=== PATIENT | female | born 1990 | race Caucasian/White ===

== ENCOUNTER 2018-01-17 11:43 | Emergency (ER) | payer OTHER, MEDICAID, SELFPAY ==
[2018-01-17] VITALS (8 sets, daily range): BP systolic 99–122; BP diastolic 47–80; PULSE 65–100; RESP 12–23; TEMP 37.1; O2SAT 93–100; BMI 32.8
--- NOTE | 2018-01-17 12:03 | DI.RAD.S_ITS ---
PROCEDURE: XR CHEST 1V INDICATIONS: short of breath and chest pain TECHNIQUE: One view of the chest was acquired. COMPARISON: None. FINDINGS: Surgical changes and devices: None. Lungs and pleura: Lung volumes are low. There is vascular crowding secondary to low lung volumes. No acute airspace opacities. No pleural effusion or pneumothorax. Mediastinum: Mediastinal contours appear normal. Heart size is normal. Bones and chest wall: No suspicious bony lesions. Overlying soft tissues appear unremarkable. IMPRESSION: Low lung volumes and vascular crowding. Dictated by: Oly Curiel M.D. on 01/17/2018 at 12:42 Approved by: Oly Curiel M.D. on 01/17/2018 at 12:42
[2018-01-17 12:13] LABS: Add Manual Diff / Slide Review NO; Basophils Percent Auto 0.6 % (0-2); Eosinophils Percent Auto 2.6 % (2-4); Hematocrit 33.7 % (36-46); Hemoglobin 11.4 g/dL (12.0-16.0); Lymphocytes Percent Auto 24.8 % (25-40); Mean Corpuscular HGB Conc 33.9 % (30-36); Mean Corpuscular Hemoglobin 28.4 PG (26-34); Mean Corpuscular Volume 83.8 fL (80-100); Monocytes Percent Auto 7.1 % (3-14); Neutrophils Absolute Auto 6800 /uL (3000-5900); Neutrophils Percent Auto 64.9 % (50-75); Platelet Count 206 X10^3/uL (150-400); Red Blood Cell Count 4.02 X10^6/uL (4.0-5.2); Red Cell Distribution Width 14.8 % (11.6-14.8); White Blood Cell Count 10.4 X10^3/uL (4.5-11.0)
[2018-01-17 12:23] LABS: Alanine Aminotransferase 45 IU/L (9-52); Albumin 4.2 g/dL (3.5-5.0); Albumin Globulin Ratio 1.4 (1.0-2.8); Alkaline Phosphatase 80 U/L (38-126); Aspartate Aminotransferase 21 IU/L (14-36); Bilirubin Total 0.3 mg/dL (0.2-1.3); Blood Urea Nitrogen 12 mg/dL (7-17); Calcium 8.9 mg/dL (8.4-10.2); Carbon Dioxide 26 mmol/L (22-32); Chloride 103 mmol/L (98-107); Creatine Kinase 99 U/L (30-135); Estimated Glomerular Filt Rate > 60.0 mL/min (>60); Glucose 90 mg/dL (70-100); HEMOLYSIS 21 (0-50); Lipase 99 U/L (23-300); Potassium 4.4 mmol/L (3.4-5.1); Sodium 139 mmol/L (137-145); Total Protein 7.2 g/dL (6.3-8.2)
[2018-01-17 12:36] LABS: Troponin I < 0.012 ng/mL (0.01-0.034)
--- NOTE | 2018-01-17 12:48 | DI.RAD.S_ITS ---
PROCEDURE: XR CHEST 2V INDICATIONS: chest pain TECHNIQUE: 2 views of the chest were acquired. COMPARISON: None. FINDINGS: Surgical changes and devices: None. Lungs and pleura: No pleural effusions or pneumothorax. Lungs are clear. Mediastinum: Mediastinal contours are normal. Heart size is normal. Bones and chest wall: No suspicious bony abnormalities. Soft tissues appear unremarkable. IMPRESSION: No acute cardiopulmonary findings. Dictated by: Oly Curiel M.D. on 01/17/2018 at 13:53 Approved by: Oly Curiel M.D. on 01/17/2018 at 13:54
[2018-01-17 13:05] LABS: D Dimer 235 ng/mL (<230)
[2018-01-17] MEDS: MAG HYDROX/ALUMINUM/SIMETH SUS 20 ML, LIDOCAINE VISCOUS 2% 15 ML PO (13:15)
--- NOTE | 2018-01-17 13:53 | DI.CT.S_ITS ---
PROCEDURE: CT ANGIO CHEST PE PROTOCOL INDICATIONS: chest pain w/ elevated d-dimer TECHNIQUE: After the administration of intravenous contrast, 2 mm thick sections acquired from the pulmonary apices to the posterior costophrenic angles. 3-dimensional maximum intensity projection (MIP) coronal and sagittal reformats were then acquired through the thorax. For radiation dose reduction, the following was used: automated exposure control, adjustment of mA and/or kV according to patient size. COMPARISON: None. FINDINGS: Image quality: Excellent. Pulmonary arteries: Pulmonary arteries are normal in size, and demonstrate no intraluminal filling defects to suggest central pulmonary embolism. Lungs and pleura: Lungs are clear. No pleural effusions or pneumothorax. Central and peripheral airways are patent. Mediastinum: Heart size is normal, without pericardial effusion. No mediastinal or hilar adenopathy. Thoracic aorta is normal in caliber and enhancement. Esophagus is normal in caliber, without hiatal hernia. Bones and chest wall: No suspicious bony lesions. Ribs and thoracic spine appear intact throughout. Thyroid gland is unremarkable. No axillary or supraclavicular adenopathy. Abdomen: Multiple calcified subcentimeter gallstones are present within the gallbladder fundus. Visualized upper abdominal solid organs appear normal in the early arterial phase of enhancement. IMPRESSION: 1. No acute pulmonary embolus. 2. No findings to explain chest pain. 3. Cholelithiasis. Dictated by: Oly Curiel M.D. on 01/17/2018 at 14:19 Approved by: Oly Curiel M.D. on 01/17/2018 at 14:22
[2018-01-17 15:06] LABS: Troponin I < 0.012 ng/mL (0.01-0.034)
--- NOTE | 2018-01-17 15:23 | ED.CHESTPAIN ---
HPI - Chest Pain General Chief Complaint: Chest Pain Stated Complaint: chest pain, trouble breathing History of Present Illness HPI narrative: HPI 27-year-old obese female presents for evaluation of poorly characterized substernal chest pain of 1+ days duration. Unable to identify any provoking or relieving factors. Patient denies recent immobilization, leg trauma, estrogen use, surgery in the last four weeks, hemoptysis, or malignancy in the last 6 months. M/S/F/SocHx notable for: please see HPI; remainder reviewed with patient and in chart. ROS: Negative constitutional, eye, cardiovascular, pulmonary, GI, , MSK, skin, neurologic, psychiatric, endocrine unless noted in the HPI. Exam Gen: Pleasant, non-toxic appearing, resting comfortably. HEENT: NC, AT, PEERL, EOMI. Resp: Clear to auscultation bilaterally, normal work of breathing. Card: RRR with no M/R/G, no crackles in lung bases, no pedal edema, no JVD appreciated. GI: NT/ND Vascular: Both ankles, calves, and thighs of equal size, no calf tenderness to palpation bilaterally. MSK: No chest wall TTP. No visible deformities, strength and tone WNL. Skin: Normal color with no visible lesions. Neuro: AO x 3, no facial asymmetry, vision and hearing WNL. Psych: Mood and affect appropriate. Labs / Imaging (pertinent): WBC 10.4, Hb 11.4, Na 139, K 4.4, total bilirubin 0.3, AST 21, ALT 45, ALP 80, lipase 99. Troponin <0.012, troponin (repeat) <0.012 d-dimer 235 EKG: SR at 70 bpm, no MA segment depressions, no new ST segment changes, new LBBB, or T-wave changes that would suggest acute ischemia. CXR: No acute cardiopulmonary disease process. CTA chest: no acute pulmonary tablets. No findings to explain chest pain. Cholelithiasis. MDM Previous chart, nursing note, and vitals reviewed. A: 27-year-old obese female presents for evaluation of poorly characterized substernal chest pain of 1+ days duration. Unable to identify any provoking or relieving factors. DDx and Evaluation: given the negative cardiopulmonary evaluation suspect the patient's symptoms may be secondary to biliary colic. However patient had difficult to elicit set of responses to a physical exam. Recommend surgery follow-up as her pain is adequately controlled of the present time. Liver enzymes WNL. Alternate diagnoses considered: * ACS - doubt ACS given a non-ischemic EKG and negative serial troponins. * UA - unlikely given the atypical history and alternate diagnosis. HEART score 1 (Hx - 0, EKG - 0, age - 0, risk factors - 1, troponin - 0; 30 day MACE: less than or equal to 1.7%). * Pericarditis - consider pericarditis unlikely given the lack of MA segment depressions as well as the absence of diffuse ST-segment elevations, lack of reduction of pain when supine, and lack of a friction rub. * Myocarditis - unlikely given the negative troponin and an EKG without characteristic MA-segment or ST-segment changes. * Dissection - dissection is unlikely given symptoms, and lack of mediastinal widening. * PE - positive d-dimer, negative CTA. * Mediastinal Air - no evidence by CXR or auscultation. * Pneumothorax - no evidence by CXR or physical exam. * MSK - doubt given lack of reproducibility on exam. * Endocarditis - no identifiable risk factors, patient afebrile, no new murmurs appreciated on exam; doubt. * GI (Esophageal rupture, GERD) - esophageal rupture effectively excluded given the lack of mediastinal widening, non-toxic appearance, and lack of identifiable risk factors. While not definitively excluded, further evaluation of GERD is deferred to an outpatient setting. Impression: suspected biliary colic (please reference below for remainder of encounter information) Related Data Home Medications Medication Instructions Recorded Confirmed citalopram [Celexa] 1 tab PO QDAY #0 10/02/17 ferrous sulfate PO BID #0 10/02/17 fluticasone INH QDAY #0 10/02/17 [VITAMIN C] 1 tab PO BID #0 11/12/17 Previous Rx's Medication Instructions Recorded cetirizine 10 mg PO QDAY #30 tab 11/12/17 cholecalciferol (vitamin D3) 1 tab PO QDAY #90 tab 11/12/17 [Vitamin D3] citalopram 40 mg PO Q DAY #30 tab 11/12/17 ferrous sulfate 300 mg PO BID #300 ml 11/12/17 orphenadrine citrate 100 mg PO BID #60 tab 11/12/17 trazodone 50 mg PO HS #30 tab 11/12/17 vitamin B complex [B 1 tab PO 3XWEEK #90 tab 11/12/17 Complex-Vitamin B12] Allergies Allergy/AdvReac Type Severity Reaction Status Date / Time aspirin Allergy Severe SWOLLEN Verified 01/17/18 13:57 THROAT AND ITCHING ALL OVER bee venom protein (honey bee) Allergy Severe SWELLING Verified 01/17/18 13:57 [BEE VENOM PROTEIN (HONEY AT THE SITE BEE)] shrimp [SHRIMP] Allergy Severe SWOLLEN Verified 01/17/18 13:57 THROAT ibuprofen AdvReac Intermediate ITCHING Verified 01/17/18 13:57 ALL OVER HER BODY NSAIDS (Non-Steroidal AdvReac Intermediate ITCHING Verified 01/17/18 13:57 Anti-Inflamma ALL OVER [NSAIDS (NON-STEROIDAL BODY ANTI-INFLAMMA] PFSH Surgical History Status post delivery (03/10/12) Family History Grandfather Age: 68 Diabetes mellitus Grandmother Age: 68 Asthma Mother Age: 46 Asthma Social History Smoking Status: Current every day smoker Exam Initial Vital Signs Initial Vital Signs: Vital Signs Temperature 98.7 F 01/17/18 11:45 Pulse Rate 75 01/17/18 11:45 Respiratory Rate 18 01/17/18 11:45 Blood Pressure 122/71 H 01/17/18 11:45 Pulse Oximetry 98 01/17/18 11:45 Course Orders Ordered: ED Orders 01/17/18 11:49 EKG-12 Lead Stat 01/17/18 11:58 Complete Blood Count AUTO DIFF Stat Comprehensive Metabolic Panel Stat D Dimer Stat Lipase Stat Troponin with CK Cardiac Panel Stat 01/17/18 12:03 XR chest 1V Stat 01/17/18 12:48 XR chest 2V Stat 01/17/18 13:53 CT angio chest PE protocol Stat 01/17/18 14:34 Troponin I Stat Discontinued Medications Al Hydrox/Mg Hydrox/Simethicone 20 ml/ Lidocaine HCl 15 ml 0 ml PO NOW ONE Stop: 01/17/18 12:49 Last Admin: 01/17/18 13:15 Dose: 15 ml Vital Signs - 8 hr 01/17/18 11:45 01/17/18 13:08 01/17/18 14:20 Temperature 98.7 F Pulse Rate 75 65 66 Respiratory Rate 18 12 20 Blood Pressure 122/71 H Blood Pressure [Left Arm] 111/61 110/47 L Pulse Oximetry 98 100 100 01/17/18 14:36 Temperature Pulse Rate 77 Respiratory Rate 21 Blood Pressure Blood Pressure [Left Arm] 115/64 Pulse Oximetry 99 MDM - Chest Pain Lab Data Result diagrams: 01/17/18 11:58 01/17/18 11:58 Lab Results 01/17/18 01/17/18 01/17/18 Range/Units 11:58 11:58 11:58 WBC 10.4 (4.5-11.0) X10^3/uL RBC 4.02 (4.0-5.2) X10^6/uL Hgb 11.4 L (12.0-16.0) g/dL Hct 33.7 L (36-46) % MCV 83.8 (80-100) fL MCH 28.4 (26-34) PG MCHC 33.9 (30-36) % RDW 14.8 (11.6-14.8) % Plt Count 206 (150-400) X10^3/uL Neut % (Auto) 64.9 (50-75) % Lymph % (Auto) 24.8 L (25-40) % [place] % (Auto) 7.1 (3-14) % Eos % (Auto) 2.6 (2-4) % Baso % (Auto) 0.6 (0-2) % Neut # (Auto) 6800 H (6782-7219) /uL D-Dimer 235 H (<230) ng/mL Sodium 139 (137-145) mmol/L Potassium 4.4 (3.4-5.1) mmol/L Chloride 103 (98-107) mmol/L Carbon Dioxide 26 (22-32) mmol/L BUN 12 (7-17) mg/dL Creatinine 0.80 (0.52-1.04) mg/dL Estimated GFR > 60.0 (>60) mL/min BUN/Creatinine Ratio 15.0 (6-22) Glucose 90 (70-100) mg/dL Calcium 8.9 (8.4-10.2) mg/dL Total Bilirubin 0.3 (0.2-1.3) mg/dL AST 21 (14-36) IU/L ALT 45 (9-52) IU/L Alkaline Phosphatase 80 (38-126) U/L Total Creatine Kinase 99 (30-135) U/L Troponin I < 0.012 (0.01-0.034) ng/mL Total Protein 7.2 (6.3-8.2) g/dL Albumin 4.2 (3.5-5.0) g/dL Globulin 3.0 (1.7-4.1) g/dL Albumin/Globulin Ratio 1.4 (1.0-2.8) Lipase 99 (23-300) U/L 01/17/18 Range/Units 14:34 WBC (4.5-11.0) X10^3/uL RBC (4.0-5.2) X10^6/uL Hgb (12.0-16.0) g/dL Hct (36-46) % MCV (80-100) fL MCH (26-34) PG MCHC (30-36) % RDW (11.6-14.8) % Plt Count (150-400) X10^3/uL Neut % (Auto) (50-75) % Lymph % (Auto) (25-40) % [place] % (Auto) (3-14) % Eos % (Auto) (2-4) % Baso % (Auto) (0-2) % Neut # (Auto) (2708-0298) /uL D-Dimer (<230) ng/mL Sodium (137-145) mmol/L Potassium (3.4-5.1) mmol/L Chloride (98-107) mmol/L Carbon Dioxide (22-32) mmol/L BUN (7-17) mg/dL Creatinine (0.52-1.04) mg/dL Estimated GFR (>60) mL/min BUN/Creatinine Ratio (6-22) Glucose (70-100) mg/dL Calcium (8.4-10.2) mg/dL Total Bilirubin (0.2-1.3) mg/dL AST (14-36) IU/L ALT (9-52) IU/L Alkaline Phosphatase (38-126) U/L Total Creatine Kinase (30-135) U/L Troponin I < 0.012 (0.01-0.034) ng/mL Total Protein (6.3-8.2) g/dL Albumin (3.5-5.0) g/dL Globulin (1.7-4.1) g/dL Albumin/Globulin Ratio (1.0-2.8) Lipase (23-300) U/L Discharge Plan Departure Prescriptions: No Action citalopram [Celexa] 40 MG tablet 1 tab PO QDAY Qty: 0 RF: 0 ferrous sulfate 300 MG/5 ML liquid PO BID Qty: 0 RF: 0 fluticasone 16 GM spray,suspension INH QDAY Qty: 0 RF: 0 [VITAMIN C] 1 tab PO BID Qty: 0 RF: 0 citalopram 40 MG tablet 40 mg PO Q DAY Qty: 30 RF: 3 ferrous sulfate 300 MG/5 ML liquid 300 mg PO BID Qty: 300 RF: 3 trazodone 50 MG tablet 50 mg PO HS Qty: 30 RF: 3 cetirizine 10 MG tablet 10 mg PO QDAY Qty: 30 RF: 3 orphenadrine citrate 100 MG tablet extended release 100 mg PO BID Qty: 60 RF: 3 vitamin B complex [B Complex-Vitamin B12] 1 EACH tablet 1 tab PO 3XWEEK Qty: 90 RF: 1 cholecalciferol (vitamin D3) [Vitamin D3] 2,000 UNIT tablet 1 tab PO QDAY Qty: 90 RF: 1
== END 2018-01-17 15:45 | disposition home or self-care (01) ==
PROVIDERS: Emergency Provider Emergency Medicine; Family Provider Physician Assistant; PCP Physician Assistant
DX: K80.50 Calculus of bile duct without cholangitis or cholecystitis without obstruction (principal)
CPT/HCPCS: 36415; 71045; 71046; 71275; 80053; 81003; 82550; 82553; 83690; 84484; 85025; 85379; 93005; 99283; 99285; Q9967

== ENCOUNTER 2018-05-16 21:48 | Emergency (ER) | payer OTHER, MEDICAID, SELFPAY ==
[2018-05-16 21:58] VITALS: BP 118/77; PULSE 80; RESP 18; TEMP 36.8; O2SAT 99; BMI 31.3
--- NOTE | 2018-05-16 22:56 | ED.FEVER ---
HPI - Fever General Chief Complaint: Fever Stated Complaint: i dont feel well Time Seen by Provider: 05/16/18 22:11 Source: patient Mode of arrival: ambulatory Limitations: no limitations History of Present Illness HPI Narrative: 28-year-old female presents with a chief complaint of not feeling well for the past 1 hr. She admits to some runny nose and faint nausea and felt a little bit weak. She denies sore throat cough or shortness of breath. She denies chest pain. She denies vomiting or diarrhea. She denies dysuria, frequency or urgency. She denies new medications or change in diet complaint: malaise and weakness Onset (ago): hour(s) Temperature Source: subjective Context: sick contacts Associated symptoms: myalgias, headache and rhinorrhea Relieving factors: nothing Exacerbating factors: nothing Treatments prior to arrival fever: none Related Data Home Medications Medication Instructions Recorded Confirmed citalopram [Celexa] 1 tab PO QDAY #0 10/02/17 02/22/18 Previous Rx's Medication Instructions Recorded cetirizine 10 mg PO QDAY #30 tab 11/12/17 citalopram 40 mg PO Q DAY #30 tab 11/12/17 ferrous sulfate 300 mg PO BID #300 ml 11/12/17 orphenadrine citrate 100 mg PO BID #60 tab 11/12/17 trazodone 50 mg PO HS #30 tab 11/12/17 Allergies Allergy/AdvReac Type Severity Reaction Status Date / Time aspirin Allergy Severe SWOLLEN Verified 02/22/18 09:30 THROAT AND ITCHING ALL OVER bee venom protein (honey bee) Allergy Severe SWELLING Verified 02/22/18 09:30 [BEE VENOM PROTEIN (HONEY AT THE SITE BEE)] shrimp [SHRIMP] Allergy Severe SWOLLEN Verified 02/22/18 09:30 THROAT ibuprofen AdvReac Intermediate ITCHING Verified 02/22/18 09:30 ALL OVER HER BODY NSAIDS (Non-Steroidal AdvReac Intermediate ITCHING Verified 02/22/18 09:30 Anti-Inflamma ALL OVER [NSAIDS (NON-STEROIDAL BODY ANTI-INFLAMMA] Review of Systems Review of Systems All systems reviewed & are unremarkable except as noted in HPI and below Constitutional Reports fever(s), Denies lethargy and Reports weakness Eyes Denies change in vision, Denies eye discharge, Denies irritation and Denies loss of vision ENT Ears, Nose, Mouth, and Throat: Denies change in voice, Denies neck pain and Denies sore throat Cardiovascular Denies chest pain, Denies irregular heart rhythm, Denies lightheadedness, Denies palpitations, Denies dyspnea, Denies dyspnea on exertion and Denies orthopnea Respiratory Denies cough, Denies dyspnea, Denies dyspnea on exertion and Denies wheezing Gastrointestinal Gastrointestinal: Denies abdominal pain, Denies change in bowel habits, Denies diarrhea, Denies nausea and Denies vomiting Genitourinary Denies hematuria, Denies flank pain, Denies urinary incontinence and Denies urinary urgency Musculoskeletal Denies neck pain Integumentary/Breasts Denies pruritus, Denies erythema, Denies rash and Denies wounds Neurologic Denies confusion, Denies loss of vision and Reports weakness Psychiatric Denies anxiety, Denies confusion, Denies depression, Denies homicidal ideation and Denies suicidal ideation Endocrine Denies palpitations Hematologic/Lymphatic Denies easy bruising Allergic/Immunologic Denies wheezing PFSH Medical History Anemia (Acute) Anxiety (Chronic) Arthritis (Chronic) Asthma (Chronic) Back pain (Chronic) Depression (Chronic) Herniated disc (Chronic) Migraines (Chronic) PTSD (post-traumatic stress disorder) (Chronic) Social phobia (Chronic) Kidney stones (Resolved) Surgical History History of renal stent (Resolved) Status post delivery (03/10/12) Family History Grandfather Age: 68 Diabetes mellitus Grandmother Age: 68 Asthma Mother Age: 46 Asthma Social History Smoking Status: Current every day smoker alcohol intake: never Exam Narrative Exam Narrative: GEN: AOx3 and in mild distress EYES: Pupils are equal, round, and reactive to light and accommodation. Extraoccular muscles are intact bilaterally. There is no subconjunctival hemorrhage or exudate. CHEST: Lungs are clear to auscultation bilaterally and free of wheezes, rales, or rhonchi. Heart rate is regular rhythm, there are no murmurs, clicks, rubs, or gallops. There is no chest wall tenderness. ABD: Abdomen is soft and nontender. There is no guarding or rebound. Bowel sounds are normal in all 4 quadrants. There is no mass or organomegaly. EXT: Full painless ROM of all extremities with no loss of sensation or strength. SKIN: Warm, pink, and dry. No erythema or rash Initial Vital Signs Initial Vital Signs: Vital Signs Temperature 98.2 F 05/16/18 21:58 Pulse Rate 80 05/16/18 21:58 Respiratory Rate 18 05/16/18 21:58 Blood Pressure 118/77 05/16/18 21:58 Pulse Oximetry 99 05/16/18 21:58 Course Orders Ordered: ED Orders 05/16/18 23:00 Basic Metabolic Panel Stat 05/16/18 23:05 Complete Blood Count AUTO DIFF Stat Discontinued Medications Sodium Chloride (Normal Saline 0.9%) 1,000 mls @ 1,000 mls/hr IV BOLUS ONE Stop: 05/16/18 23:31 Last Infusion: 05/16/18 23:54 Dose: 0 mls/hr Admin: 05/16/18 23:11 Dose: 1,000 mls/hr Reevaluation(s) Reevaluation #1: Feels much better after some fluids Vital Signs - 8 hr 05/16/18 21:58 05/16/18 23:38 Temperature 98.2 F Pulse Rate 80 81 Respiratory Rate 18 16 Blood Pressure 118/77 Blood Pressure [Right Arm] 130/67 Pulse Oximetry 99 100 MDM - Fever Lab Data Result diagrams: 05/16/18 23:05 05/16/18 23:00 Lab Results 05/16/18 05/16/18 Range/Units 23:00 23:05 WBC 9.2 (4.5-11.0) X10^3/uL RBC 4.13 (4.0-5.2) X10^6/uL Hgb 11.1 L (12.0-16.0) g/dL Hct 33.9 L (36-46) % MCV 81.9 (80-100) fL MCH 26.8 (26-34) PG MCHC 32.7 (30-36) % RDW 15.7 H (11.6-14.8) % Plt Count 246 (150-400) X10^3/uL Neut % (Auto) 58.6 (50-75) % Lymph % (Auto) 33.0 (25-40) % [place] % (Auto) 5.9 (3-14) % Eos % (Auto) 1.7 L (2-4) % Baso % (Auto) 0.8 (0-2) % Neut # (Auto) 5400 (2873-5079) /uL Sodium 141 (137-145) mmol/L Potassium 3.7 (3.4-5.1) mmol/L Chloride 103 (98-107) mmol/L Carbon Dioxide 27 (22-32) mmol/L BUN 16 (7-17) mg/dL Creatinine 0.90 (0.52-1.04) mg/dL Estimated GFR > 60.0 (>60) mL/min BUN/Creatinine Ratio 17.8 (6-22) Glucose 97 (70-100) mg/dL Calcium 9.2 (8.4-10.2) mg/dL Point of Care Testing Test Results Negative Urine Dip Bedside Urine Glucose Negative Bedside Urine Bilirubin - Negative Bedside Urine Ketone +/- 5 Urine Specific [place] 1.030 Bedside Urine Occult Blood - Negative Bedside Urine pH 6.0 Bedside Urine Protein +/- 15 Bedside Urine Urobilinogen - Negative Bedside Urine Nitrite - Negative Bedside Urine Leukocytes - Negative Esterase Discharge Plan Departure Patient Disposition: Home Clinical Impression: Acute viral syndrome Discharge Date/Time: 05/16/18 23:56 Interventions: ED Discharge Assessment Last Done: 05/16/18 23:55 Instructions: DI for Viral Syndrome Activity Restrictions/Additional Instructions: *You have been diagnosed with [ acute viral syndrome ] *What to do: *Take medications as directed *Follow up with your primary care provider in 2-3 days, call for an appointment. Let them know you were seen in the Emergency Department and that we ask that you be seen in follow up *Return to ER if you should have any new, worsening or concerning symptoms, such as [ ] Prescriptions: No Action citalopram [Celexa] 40 MG tablet 1 tab PO QDAY Qty: 0 RF: 0 citalopram 40 MG tablet 40 mg PO Q DAY Qty: 30 RF: 3 ferrous sulfate 300 MG/5 ML liquid 300 mg PO BID Qty: 300 RF: 3 trazodone 50 MG tablet 50 mg PO HS Qty: 30 RF: 3 cetirizine 10 MG tablet 10 mg PO QDAY Qty: 30 RF: 3 orphenadrine citrate 100 MG tablet extended release 100 mg PO BID Qty: 60 RF: 3 Referrals: Sofya Bach PA-C [Primary Care Provider] -
--- NOTE | 2018-05-16 23:07 | PC.NURSE ---
Pt has hx of anemia. has not been taking her iron pills for a few months. State she just started her period. Has been feeling fine all day until a few hours ago. Has headache, nausea, and weakness/dizziness.
[2018-05-16] MEDS: SODIUM CHLORIDE 0.9% 1,000 ML 1000 ML IV (23:11)
[2018-05-16 23:13] LABS: Add Manual Diff / Slide Review NO; Basophils Percent Auto 0.8 % (0-2); Eosinophils Percent Auto 1.7 % (2-4); Hematocrit 33.9 % (36-46); Hemoglobin 11.1 g/dL (12.0-16.0); Mean Corpuscular HGB Conc 32.7 % (30-36); Mean Corpuscular Hemoglobin 26.8 PG (26-34); Mean Corpuscular Volume 81.9 fL (80-100); Monocytes Percent Auto 5.9 % (3-14); Neutrophils Absolute Auto 5400 /uL (3000-5900); Neutrophils Percent Auto 58.6 % (50-75); Platelet Count 246 X10^3/uL (150-400); Red Blood Cell Count 4.13 X10^6/uL (4.0-5.2); Red Cell Distribution Width 15.7 % (11.6-14.8); White Blood Cell Count 9.2 X10^3/uL (4.5-11.0)
[2018-05-16 23:23] LABS: BUN Creatinine Ratio 17.8 (6-22); Blood Urea Nitrogen 16 mg/dL (7-17); Calcium 9.2 mg/dL (8.4-10.2); Carbon Dioxide 27 mmol/L (22-32); Chloride 103 mmol/L (98-107); Estimated Glomerular Filt Rate > 60.0 mL/min (>60); Glucose 97 mg/dL (70-100); HEMOLYSIS < 15 (0-50); Potassium 3.7 mmol/L (3.4-5.1); Sodium 141 mmol/L (137-145)
[2018-05-16 23:38] VITALS: BP 130/67; PULSE 81; RESP 16; O2SAT 100
== END 2018-05-16 23:56 | disposition home or self-care (01) ==
PROVIDERS: Emergency Provider Emergency Medicine; Family Provider Physician Assistant; PCP Physician Assistant
DX: B34.9 Viral infection, unspecified (principal)
CPT/HCPCS: 36591; 80048; 81003; 81025; 85025; 96360; 99283; 99284

== ENCOUNTER 2018-06-01 18:26 | Inpatient (IN) | payer OTHER, MEDICAID, SELFPAY ==
[2018-06-01 18:39] VITALS: BP 121/74; PULSE 84; RESP 13; TEMP 36.8; O2SAT 98
[2018-06-01] MEDS: SODIUM CHLORIDE 0.9% 1,000 ML 150 ML IV (18:54)
[2018-06-01] MEDS: ONDANSETRON 4 MG/2 ML INJ IV ×3 (18:54→21:38)
[2018-06-01 19:06] LABS: Add Manual Diff / Slide Review NO; Basophils Percent Auto 1.1 % (0-2); Eosinophils Percent Auto 1.3 % (2-4); Hematocrit 32.6 % (36-46); Hemoglobin 10.6 g/dL (12.0-16.0); Lymphocytes Percent Auto 25.7 % (25-40); Mean Corpuscular HGB Conc 32.5 % (30-36); Mean Corpuscular Hemoglobin 26.7 PG (26-34); Mean Corpuscular Volume 82.3 fL (80-100); Monocytes Percent Auto 7.2 % (3-14); Neutrophils Absolute Auto 4500 /uL (3000-5900); Neutrophils Percent Auto 64.7 % (50-75); Platelet Count 222 X10^3/uL (150-400); Red Blood Cell Count 3.96 X10^6/uL (4.0-5.2); Red Cell Distribution Width 15.7 % (11.6-14.8); White Blood Cell Count 6.9 X10^3/uL (4.5-11.0)
[2018-06-01 19:10] LABS: INR 1.2 (0.9-1.3); Prothrombin Time 12.8 SECONDS (10.1-12.7)
[2018-06-01 19:14] LABS: Lactate (Lactic Acid) 1.2 mmol/L (0.7-2.1)
[2018-06-01 19:16] LABS: Alanine Aminotransferase 30 IU/L (9-52); Albumin 4.1 g/dL (3.5-5.0); Albumin Globulin Ratio 1.5 (1.0-2.8); Alkaline Phosphatase 59 U/L (38-126); Aspartate Aminotransferase 19 IU/L (14-36); BUN Creatinine Ratio 11.3 (6-22); Bilirubin Total 0.4 mg/dL (0.2-1.3); Blood Urea Nitrogen 9 mg/dL (7-17); Calcium 8.5 mg/dL (8.4-10.2); Carbon Dioxide 23 mmol/L (22-32); Chloride 106 mmol/L (98-107); Estimated Glomerular Filt Rate > 60.0 mL/min (>60); Ethanol (ETOH) < 10 mg/dL; Globulin 2.7 g/dL (1.7-4.1); Glucose 104 mg/dL (70-100); HEMOLYSIS < 15 (0-50); Potassium 3.7 mmol/L (3.4-5.1); Salicylate < 1.0 mg/dL (<20); Sodium 142 mmol/L (137-145); Total Protein 6.8 g/dL (6.3-8.2)
[2018-06-01 19:24] VITALS: BP 114/53; PULSE 68; RESP 11; O2SAT 100
[2018-06-01 19:25] LABS: Acetaminophen 204 ug/mL (10-30)
--- NOTE | 2018-06-01 19:26 | ED_ITS ---
HPI - Overdose General Chief Complaint: Toxicology Problem Stated Complaint: Intentional OD Time Seen by Provider: 06/01/18 18:31 Source: patient and EMS Mode of arrival: EMS Limitations: no limitations History of Present Illness HPI Narrative: Patient is a 28-year-old female who presents with intentional Tylenol overdose. She said she took a handful of [employer] arthritis Tylenol between 3 and 4 while at work. She said her depression got the best of her it was an attempt to kill herself. This is not her 1st attempt. She has been hospitalized in the past. Previously also taking pills. She did tell her configuration release manager of the intent at which point 911 was called. She overall feels slightly nauseated and has overall discomfort MD complaint: intentional overdose Onset (ago): hour(s) Related Data Home Medications Medication Instructions Recorded Confirmed No Known Home Medications 06/01/18 06/01/18 Allergies Allergy/AdvReac Type Severity Reaction Status Date / Time aspirin Allergy Severe SWOLLEN Verified 05/20/18 11:12 THROAT AND ITCHING ALL OVER bee venom protein (honey bee) Allergy Severe SWELLING Verified 05/20/18 11:12 [BEE VENOM PROTEIN (HONEY AT THE SITE BEE)] shrimp [SHRIMP] Allergy Severe SWOLLEN Verified 05/20/18 11:12 THROAT ibuprofen AdvReac Intermediate ITCHING Verified 05/20/18 11:12 ALL OVER HER BODY NSAIDS (Non-Steroidal AdvReac Intermediate ITCHING Verified 05/20/18 11:12 Anti-Inflamma ALL OVER [NSAIDS (NON-STEROIDAL BODY ANTI-INFLAMMA] Review of Systems Review of Systems All systems reviewed & are unremarkable except as noted in HPI and below Constitutional Denies chills, Denies fever(s), Denies lethargy and Denies weakness Cardiovascular Denies chest pain, Denies irregular heart rhythm, Denies lightheadedness, Denies palpitations, Denies dyspnea, Denies dyspnea on exertion and Denies orthopnea Respiratory Denies cough, Denies dyspnea, Denies dyspnea on exertion and Denies wheezing Gastrointestinal Gastrointestinal: Reports nausea and Denies vomiting Genitourinary Denies hematuria, Denies flank pain, Denies urinary incontinence and Denies urinary urgency Musculoskeletal Denies back pain, Denies muscle weakness, Denies numbness and Denies tingling Integumentary/Breasts Denies pruritus, Denies erythema, Denies rash and Denies wounds Neurologic Denies numbness, Denies tingling and Denies weakness Psychiatric Reports as per HPI and Reports depression Endocrine Denies palpitations Allergic/Immunologic Denies wheezing PFSH Medical History Anemia (Acute) Anxiety (Chronic) Arthritis (Chronic) Asthma (Chronic) Back pain (Chronic) Depression (Chronic) Herniated disc (Chronic) Migraines (Chronic) PTSD (post-traumatic stress disorder) (Chronic) Social phobia (Chronic) Kidney stones (Resolved) Surgical History History of renal stent (Resolved) Status post delivery (03/10/12) Family History Grandfather Age: 68 Diabetes mellitus Grandmother Age: 68 Asthma Mother Age: 46 Asthma Social History Smoking Status: Current every day smoker alcohol intake: never Exam Initial Vital Signs Initial Vital Signs: Vital Signs Temperature 98.3 F 06/01/18 18:39 Pulse Rate 84 06/01/18 18:39 Respiratory Rate 13 06/01/18 18:39 Blood Pressure 121/74 06/01/18 18:39 Pulse Oximetry 98 06/01/18 18:39 Const General: cooperative and well developed Nutritional Appearance: well nourished Orientation: alert, awake, oriented x3 and not confused Neck Neck: normal visual inspection, full ROM and no meningeal signs Chest Chest: normal inspection of the chest Resp Effort & Inspection: normal respiratory effort, able to speak in complete sentences, no respiratory distress and no use of accessory muscles Auscultation: clear to auscultation bilaterally, no rales, no rhonchi and no wheezes Cardio Rate: regular rate Rhythm: regular rhythm Heart Sounds: S1 normal, S2 normal, no murmurs and no rubs Pulses: normal peripheral pulses GI Palpation: soft, No tender and No ascites Back/Spine/Pelvis Back: normal to inspection and back tenderness Skin General: no rashes or lesions noted, No jaundice and No petechiae Psych Appearance: well kempt Speech and Movement: speech and movement normal and speech not pressured Mood: labile mood Attitude: cooperative Thought Content: normal Judgment: fair Other: wants help Course Orders Ordered: ED Orders 06/01/18 18:58 Acetaminophen Stat Complete Blood Count AUTO DIFF Stat Comprehensive Metabolic Panel Stat Ethanol (ETOH) Stat Lactate (Lactic Acid) Stat Prothrombin Time INR Stat Salicylate Stat 06/01/18 19:15 Urine Drug Screen, Rapid Stat 06/02/18 05:00 Complete Blood Count AUTO DIFF Routine Comprehensive Metabolic Panel Routine Enoxaparin Sodium (Lovenox) 40 mg SUBCUT DAILY ROBERT Sodium Chloride (Normal Saline 0.9%) 1,000 mls @ 150 mls/hr IV CONT ROBERT Last Admin: 06/01/18 18:54 Dose: 150 mls/hr Acetylcysteine 4,535 mg/ (Dextrose) 522.675 mls @ 130.669 mls/hr IV NOW ONE Stop: 06/02/18 00:59 Acetylcysteine 9,071 mg/ (Dextrose) 1,045.355 mls @ 65.335 mls/hr IV NOW ONE Stop: 06/02/18 16:59 Lactated Ringer's (Lactated Ringers) 1,000 mls @ 100 mls/hr IV CONT ROBERT Ondansetron HCl (Zofran) 4 mg IV Q4HR PRN PRN Reason: Nausea And Vomiting Discontinued Medications Acetylcysteine 13,610 mg/ (Dextrose) 268.05 mls @ 268.05 mls/hr IV NOW ONE Stop: 06/01/18 19:27 Last Admin: 06/01/18 19:52 Dose: 268.05 mls/hr Metoclopramide HCl (Reglan) 10 mg IV NOW ONE Stop: 06/01/18 20:46 Last Admin: 06/01/18 20:47 Dose: 10 mg Ondansetron HCl (Zofran) 4 mg IV NOW ONE Stop: 06/01/18 18:32 Last Admin: 06/01/18 18:54 Dose: 4 mg Ondansetron HCl (Zofran) 4 mg IV NOW ONE Stop: 06/01/18 20:36 Last Admin: 06/01/18 20:37 Dose: 4 mg Vital Signs - 8 hr 06/01/18 18:39 06/01/18 19:24 06/01/18 20:30 Temperature 98.3 F Pulse Rate 84 68 72 Respiratory Rate 13 11 L 23 Blood Pressure 121/74 Blood Pressure [Left Arm] 114/53 L 107/63 Pulse Oximetry 98 100 99 MDM - Overdose Lab Data Attestation: I reviewed the patient's lab results. Result diagrams: 06/01/18 18:58 06/01/18 18:58 Lab Results 06/01/18 06/01/18 06/01/18 Range/Units 18:58 18:58 18:58 WBC 6.9 (4.5-11.0) X10^3/uL RBC 3.96 L (4.0-5.2) X10^6/uL Hgb 10.6 L (12.0-16.0) g/dL Hct 32.6 L (36-46) % MCV 82.3 (80-100) fL MCH 26.7 (26-34) PG MCHC 32.5 (30-36) % RDW 15.7 H (11.6-14.8) % Plt Count 222 (150-400) X10^3/uL Neut % (Auto) 64.7 (50-75) % Lymph % (Auto) 25.7 (25-40) % [place] % (Auto) 7.2 (3-14) % Eos % (Auto) 1.3 L (2-4) % Baso % (Auto) 1.1 (0-2) % Neut # (Auto) 4500 (8977-3897) /uL PT 12.8 H (10.1-12.7) SECONDS INR 1.2 (0.9-1.3) Sodium 142 (137-145) mmol/L Potassium 3.7 (3.4-5.1) mmol/L Chloride 106 (98-107) mmol/L Carbon Dioxide 23 (22-32) mmol/L BUN 9 (7-17) mg/dL Creatinine 0.80 (0.52-1.04) mg/dL Estimated GFR > 60.0 (>60) mL/min BUN/Creatinine Ratio 11.3 (6-22) Glucose 104 H (70-100) mg/dL Lactate (0.7-2.1) mmol/L Calcium 8.5 (8.4-10.2) mg/dL Total Bilirubin 0.4 (0.2-1.3) mg/dL AST 19 (14-36) IU/L ALT 30 (9-52) IU/L Alkaline Phosphatase 59 (38-126) U/L Total Protein 6.8 (6.3-8.2) g/dL Albumin 4.1 (3.5-5.0) g/dL Globulin 2.7 (1.7-4.1) g/dL Albumin/Globulin Ratio 1.5 (1.0-2.8) Salicylates < 1.0 (<20) mg/dL Urine Opiates Screen (Negative) Ur Oxycodone Screen (Negative) Urine Methadone Screen (Negative) Acetaminophen 204 H* (10-30) ug/mL Ur Barbiturates Screen (Negative) U Tricyclic Antidepress (Negative) Ur Phencyclidine Scrn (Negative) Ur Amphetamines Screen (Negative) U Methamphetamines Scrn (Negative) Ur MDMA Scrn (Ecstasy) (Negative) U Benzodiazepines Scrn (Negative) Urine Cocaine Screen (Negative) U Marijuana (THC) Screen (Negative) Ethyl Alcohol < 10 mg/dL 06/01/18 06/01/18 Range/Units 18:58 19:15 WBC (4.5-11.0) X10^3/uL RBC (4.0-5.2) X10^6/uL Hgb (12.0-16.0) g/dL Hct (36-46) % MCV (80-100) fL MCH (26-34) PG MCHC (30-36) % RDW (11.6-14.8) % Plt Count (150-400) X10^3/uL Neut % (Auto) (50-75) % Lymph % (Auto) (25-40) % [place] % (Auto) (3-14) % Eos % (Auto) (2-4) % Baso % (Auto) (0-2) % Neut # (Auto) (1577-8637) /uL PT (10.1-12.7) SECONDS INR (0.9-1.3) Sodium (137-145) mmol/L Potassium (3.4-5.1) mmol/L Chloride (98-107) mmol/L Carbon Dioxide (22-32) mmol/L BUN (7-17) mg/dL Creatinine (0.52-1.04) mg/dL Estimated GFR (>60) mL/min BUN/Creatinine Ratio (6-22) Glucose (70-100) mg/dL Lactate 1.2 (0.7-2.1) mmol/L Calcium (8.4-10.2) mg/dL Total Bilirubin (0.2-1.3) mg/dL AST (14-36) IU/L ALT (9-52) IU/L Alkaline Phosphatase (38-126) U/L Total Protein (6.3-8.2) g/dL Albumin (3.5-5.0) g/dL Globulin (1.7-4.1) g/dL Albumin/Globulin Ratio (1.0-2.8) Salicylates (<20) mg/dL Urine Opiates Screen Negative (Negative) Ur Oxycodone Screen Negative (Negative) Urine Methadone Screen Negative (Negative) Acetaminophen (10-30) ug/mL Ur Barbiturates Screen Negative (Negative) U Tricyclic Antidepress Negative (Negative) Ur Phencyclidine Scrn Negative (Negative) Ur Amphetamines Screen Negative (Negative) U Methamphetamines Scrn Negative (Negative) Ur MDMA Scrn (Ecstasy) Negative (Negative) U Benzodiazepines Scrn Negative (Negative) Urine Cocaine Screen Negative (Negative) U Marijuana (THC) Screen Positive H (Negative) Ethyl Alcohol mg/dL Point of Care Testing Test Results Negative Glucose POC 111 MDM Narrative Medical decision making narrative: Poison control contacted will need full amount of acetylcysteine. Arthritis Tylenol is usually extended relief and has delayed response. She wants help she is agreeable to go to psychiatric hospital Dr. Borja updated on patient's symptoms test results poison Control recommendations. Patient will go to ice Discharge Plan Departure Patient Disposition: Admitted As Inpatient Clinical Impression: Overdose on Tylenol, Suicidal ideation Admit Date/Time: 06/01/18 20:05 Admit Provider: Dheeraj Borja
[2018-06-01 19:34] LABS: Urine Amphetamines Negative (Negative); Urine Barbiturates Negative (Negative); Urine Benzodiazepines Negative (Negative); Urine Cocaine Negative (Negative); Urine MDMA Negative (Negative); Urine Methadone Negative (Negative); Urine Methamphetamines Negative (Negative); Urine Morphine/Opi cutoff 2000 Negative (Negative); Urine Phencyclidine Negative (Negative); Urine Tetrahydrocannabinol Positive (Negative); Urine Tricyclic Antidepressant Negative (Negative)
[2018-06-01 19:35] LABS: Urine Oxycodone Negative (Negative)
[2018-06-01] MEDS: ACETYLCYSTEINE IV ×2 (19:52→21:22)
[2018-06-01] MEDS: DEXTROSE 5% IV ×2 (19:52→21:22)
[2018-06-01] MEDS: WATER IV ×2 (19:52→21:22)
[2018-06-01 20:30] VITALS: BP 107/63; PULSE 72; RESP 23; O2SAT 99
[2018-06-01] MEDS: METOCLOPRAMIDE 10 MG/2 ML INJ IV (20:47)
--- NOTE | 2018-06-01 21:08 | P.HP_ITS ---
History of Present Illness Date Patient Seen: 06/01/18 Time Patient Seen: 21:02 Chief complaint: Intentional OD Narrative: 28-year-old female with history of depression currently not on medication presents with an intentional suicide attempt with Tylenol ingestion. She took a ?handful of Tylenol with intention to harm herself at about 3 o' clock this afternoon. She presented to the emergency room later on. A 4 hr acetaminophen ingestion level was over 200. She has been having nausea of abdominal pain and vomiting. She did not get charcoal because she was outside the window supposedly. Patient History Medical History Anemia (Acute) Anxiety (Chronic) Arthritis (Chronic) Asthma (Chronic) Back pain (Chronic) Depression (Chronic) Herniated disc (Chronic) Migraines (Chronic) PTSD (post-traumatic stress disorder) (Chronic) Social phobia (Chronic) Kidney stones (Resolved) Surgical History History of renal stent (Resolved) Status post delivery (03/10/12) Family & Social History Tobacco & Substance use: Smoking Status Current every day smoker alcohol intake never alcohol intake frequency 0-2 drinks per day Substance Use Type marijuana Meds Home Medications Medication Instructions Recorded Confirmed Type No Known Home Medications 06/01/18 06/01/18 History Allergies Allergy/AdvReac Type Severity Reaction Status Date / Time aspirin Allergy Severe SWOLLEN Verified 05/20/18 11:12 THROAT AND ITCHING ALL OVER bee venom protein (honey bee) Allergy Severe SWELLING Verified 05/20/18 11:12 [BEE VENOM PROTEIN (HONEY AT THE SITE BEE)] shrimp [SHRIMP] Allergy Severe SWOLLEN Verified 05/20/18 11:12 THROAT ibuprofen AdvReac Intermediate ITCHING Verified 05/20/18 11:12 ALL OVER HER BODY NSAIDS (Non-Steroidal AdvReac Intermediate ITCHING Verified 05/20/18 11:12 Anti-Inflamma ALL OVER [NSAIDS (NON-STEROIDAL BODY ANTI-INFLAMMA] Review of Systems Constitutional Constitutional: Reports system reviewed and no additional complaints, except as documented ENT Ears, Nose, Mouth, and Throat: Yes system reviewed; no additional complaints, except as documented Cardiovascular Cardiovascular: Reports system reviewed; no additional complaints, except as documented Respiratory Respiratory: Reports system reviewed and no additional complaints, except as documented Gastrointestinal Gastrointestinal: Reports abdominal pain, Reports nausea and Reports vomiting Psychiatric Psychiatric: Reports anxiety, Reports depression and Reports anhedonia Hematologic/Lymphatic Hematologic/Lymphatic: Reports system reviewed and no additional complaints, except as documented Allergic/Immunologic Allergic/Immunologic: Reports system reviewed and no additional complaints, except as documented Exam Vital Signs (past 8 hours): - 06/01/18 18:39 06/01/18 19:24 06/01/18 20:30 Temperature 98.3 F Pulse Rate 84 68 72 Respiratory Rate 13 11 L 23 Blood Pressure 121/74 Blood Pressure [Left Arm] 114/53 L 107/63 Pulse Oximetry 98 100 99 Oxygen Delivery Method Room Air Narrative Exam Narrative: Patient in acute distress with this intense abdominal pain nausea vomiting she has ray motion all and in tears during most of the interview and exam. Oropharynx clear Neck is supple Lungs Clear to auscultation Heart tachycardic Abdomen obese mild generalized tenderness actively vomiting Lower extremities no edema Skin moist and warm Neuro exam awake alert emotionally labile Objective Labs Result Diagrams: 06/01/18 18:58 06/01/18 18:58 Labs: Laboratory Results - last 24 hr 06/01/18 06/01/18 06/01/18 18:58 18:58 18:58 WBC 6.9 RBC 3.96 L Hgb 10.6 L Hct 32.6 L MCV 82.3 MCH 26.7 MCHC 32.5 RDW 15.7 H Plt Count 222 Neut % (Auto) 64.7 Lymph % (Auto) 25.7 [place] % (Auto) 7.2 Eos % (Auto) 1.3 L Baso % (Auto) 1.1 Neut # (Auto) 4500 PT 12.8 H INR 1.2 Sodium 142 Potassium 3.7 Chloride 106 Carbon Dioxide 23 BUN 9 Creatinine 0.80 Estimated GFR > 60.0 BUN/Creatinine Ratio 11.3 Glucose 104 H Lactate Calcium 8.5 Total Bilirubin 0.4 AST 19 ALT 30 Alkaline Phosphatase 59 Total Protein 6.8 Albumin 4.1 Globulin 2.7 Albumin/Globulin Ratio 1.5 Salicylates < 1.0 Urine Opiates Screen Ur Oxycodone Screen Urine Methadone Screen Acetaminophen 204 H* Ur Barbiturates Screen U Tricyclic Antidepress Ur Phencyclidine Scrn Ur Amphetamines Screen U Methamphetamines Scrn Ur MDMA Scrn (Ecstasy) U Benzodiazepines Scrn Urine Cocaine Screen U Marijuana (THC) Screen Ethyl Alcohol < 10 06/01/18 06/01/18 18:58 19:15 WBC RBC Hgb Hct MCV MCH MCHC RDW Plt Count Neut % (Auto) Lymph % (Auto) [place] % (Auto) Eos % (Auto) Baso % (Auto) Neut # (Auto) PT INR Sodium Potassium Chloride Carbon Dioxide BUN Creatinine Estimated GFR BUN/Creatinine Ratio Glucose Lactate 1.2 Calcium Total Bilirubin AST ALT Alkaline Phosphatase Total Protein Albumin Globulin Albumin/Globulin Ratio Salicylates Urine Opiates Screen Negative Ur Oxycodone Screen Negative Urine Methadone Screen Negative Acetaminophen Ur Barbiturates Screen Negative U Tricyclic Antidepress Negative Ur Phencyclidine Scrn Negative Ur Amphetamines Screen Negative U Methamphetamines Scrn Negative Ur MDMA Scrn (Ecstasy) Negative U Benzodiazepines Scrn Negative Urine Cocaine Screen Negative U Marijuana (THC) Screen Positive H Ethyl Alcohol Assessment & Plan Plan: Assessment/Plan Narrative: One. Acute suicide attempt with Tylenol ingestion. Patient will be kept on suicide precautions and when she is medically cleared will have the P consult 2. Acute acetaminophen ingestion with toxicity liver enzymes normal initially but the level of acetaminophen over the toxic level and treatment with in acetylcysteine has been implemented per protocol. Plan to recheck liver enzymes in the morning 3. Anemia plan to check iron levels 4. History depression currently not on treatment. This can be addressed when she is medically stable
[2018-06-01 21:15] VITALS: BP 130/70; PULSE 72; RESP 12; O2SAT 96
[2018-06-01 22:00] VITALS: BP 133/80; PULSE 65; RESP 22; O2SAT 95
[2018-06-01] MEDS: LACTATED RINGERS 1,000 ML 100 ML IV (22:23)
[2018-06-01 23:00] VITALS: BP 110/47; PULSE 70; RESP 20; O2SAT 94
[2018-06-02] VITALS (14 sets, daily range): BP systolic 108–159; BP diastolic 61–97; PULSE 56–80; RESP 10–18; TEMP 36.4–36.9; O2SAT 95–99; BMI 36.3; BMI 36.4
[2018-06-02] MEDS: WATER IV (01:44)
[2018-06-02] MEDS: DEXTROSE 5% IV (01:44)
[2018-06-02] MEDS: ACETYLCYSTEINE IV (01:44)
[2018-06-02 05:11] LABS: Add Manual Diff / Slide Review NO; Eosinophils Percent Auto 1.3 % (2-4); Hematocrit 34.8 % (36-46); Hemoglobin 11.5 g/dL (12.0-16.0); Lymphocytes Percent Auto 32.7 % (25-40); Mean Corpuscular HGB Conc 33.2 % (30-36); Mean Corpuscular Hemoglobin 26.9 PG (26-34); Mean Corpuscular Volume 81.1 fL (80-100); Monocytes Percent Auto 8.2 % (3-14); Neutrophils Absolute Auto 4900 /uL (3000-5900); Neutrophils Percent Auto 56.8 % (50-75); Platelet Count 244 X10^3/uL (150-400); Red Blood Cell Count 4.29 X10^6/uL (4.0-5.2); Red Cell Distribution Width 15.5 % (11.6-14.8); White Blood Cell Count 8.7 X10^3/uL (4.5-11.0)
[2018-06-02 05:18] LABS: Alanine Aminotransferase 26 IU/L (9-52); Albumin 3.8 g/dL (3.5-5.0); Albumin Globulin Ratio 1.5 (1.0-2.8); Alkaline Phosphatase 40 U/L (38-126); Aspartate Aminotransferase 19 IU/L (14-36); BUN Creatinine Ratio 11.4 (6-22); Bilirubin Total 0.4 mg/dL (0.2-1.3); Blood Urea Nitrogen 8 mg/dL (7-17); Calcium 8.2 mg/dL (8.4-10.2); Carbon Dioxide 22 mmol/L (22-32); Chloride 104 mmol/L (98-107); Estimated Glomerular Filt Rate > 60.0 mL/min (>60); Globulin 2.6 g/dL (1.7-4.1); Glucose 101 mg/dL (70-100); HEMOLYSIS < 15 (0-50); Potassium 3.5 mmol/L (3.4-5.1); Sodium 139 mmol/L (137-145); Total Protein 6.4 g/dL (6.3-8.2)
--- NOTE | 2018-06-02 05:53 | PC.ADMIT ---
[id number] Admission Note: The patient,Ada Santoro,28 y/o, was given written information regarding hospital policies, unit procedures and contact persons. Patient's smoking status: Current every day smoker. Vital Signs - 8 hr 06/01/18 22:00 06/01/18 23:00 06/02/18 00:00 Pulse Rate 65 70 70 Respiratory Rate 22 20 11 L Blood Pressure 133/80 110/47 L 118/63 Pulse Oximetry 95 94 97 06/02/18 01:00 06/02/18 02:00 06/02/18 03:00 Pulse Rate 68 62 62 Respiratory Rate 10 L Blood Pressure 108/61 118/73 118/73 Pulse Oximetry 97 95 95 06/02/18 04:02 06/02/18 05:00 Pulse Rate 56 L 59 L Respiratory Rate Blood Pressure 118/61 124/72 Pulse Oximetry 97 97 Patient admitted to ICU at 2100, tearful with nausea and vomitting, total 100ml clear emesis, IV Zofran given, Acetylcysteine infusing per protocol for intentional overdose of Tylenol, patient says she still has thoughts of harming herself, vague about plans. Suicide precautions in place, curtains open, 1:1 staff observation, boyfriend is in room to ease patient's anxiety. SR/SA/SB, VSS, SpO2 >94% on RA, see assessment notes and vital trends.
--- NOTE | 2018-06-02 08:12 | P.PN_ITS ---
Subjective Date Patient Seen: 06/02/18 Time Patient Seen: 08:09 Interval history: FOLLOW UP FOR SUICIDE ATTEMPT WITH TYLENOL INGESTION Patient seen at bedside. Doing well. Denies any abdominal pain at this time. No nausea/vomiting. Would like to eat. No overnight events. Received Acetylcysteine as per protocol and is still running. Exam Vital Signs (past 8 hours): - 06/02/18 01:00 06/02/18 02:00 06/02/18 03:00 Pulse Rate 68 62 62 Respiratory Rate 10 L Blood Pressure 108/61 118/73 118/73 Pulse Oximetry 97 95 95 06/02/18 04:02 06/02/18 05:00 06/02/18 06:00 Pulse Rate 56 L 59 L 60 Respiratory Rate Blood Pressure 118/61 124/72 128/72 Pulse Oximetry 97 97 97 06/02/18 07:00 Pulse Rate 56 L Respiratory Rate Blood Pressure 132/72 Pulse Oximetry 97 Oxygen Delivery Method Room Air Narrative Exam Narrative: General: NAD, AAOx3 HEENT: PERRLA BL Neck: Supple, no LAD Resp: CTA BL, no wheezing CV:RRR, no murmurs GI: +BS, soft, nontender MSK: Normal ROM Neuro: NFD Psych: slightly depressed mood. Patient is aware of her surroundings and has decision making capacity. She still has suicidal thoughts- states they never leave her Objective Labs Result Diagrams: 06/02/18 04:45 06/02/18 04:45 Labs: Laboratory Results - last 24 hr 06/01/18 06/01/18 06/01/18 18:58 18:58 18:58 WBC 6.9 RBC 3.96 L Hgb 10.6 L Hct 32.6 L MCV 82.3 MCH 26.7 MCHC 32.5 RDW 15.7 H Plt Count 222 Neut % (Auto) 64.7 Lymph % (Auto) 25.7 [place] % (Auto) 7.2 Eos % (Auto) 1.3 L Baso % (Auto) 1.1 Neut # (Auto) 4500 PT 12.8 H INR 1.2 Sodium 142 Potassium 3.7 Chloride 106 Carbon Dioxide 23 BUN 9 Creatinine 0.80 Estimated GFR > 60.0 BUN/Creatinine Ratio 11.3 Glucose 104 H Lactate Calcium 8.5 Total Bilirubin 0.4 AST 19 ALT 30 Alkaline Phosphatase 59 Total Protein 6.8 Albumin 4.1 Globulin 2.7 Albumin/Globulin Ratio 1.5 Nasal Screen MRSA (PCR) Salicylates < 1.0 Urine Opiates Screen Ur Oxycodone Screen Urine Methadone Screen Acetaminophen 204 H* Ur Barbiturates Screen U Tricyclic Antidepress Ur Phencyclidine Scrn Ur Amphetamines Screen U Methamphetamines Scrn Ur MDMA Scrn (Ecstasy) U Benzodiazepines Scrn Urine Cocaine Screen U Marijuana (THC) Screen Ethyl Alcohol < 10 06/01/18 06/01/18 06/01/18 18:58 19:15 21:05 WBC RBC Hgb Hct MCV MCH MCHC RDW Plt Count Neut % (Auto) Lymph % (Auto) [place] % (Auto) Eos % (Auto) Baso % (Auto) Neut # (Auto) PT INR Sodium Potassium Chloride Carbon Dioxide BUN Creatinine Estimated GFR BUN/Creatinine Ratio Glucose Lactate 1.2 Calcium Total Bilirubin AST ALT Alkaline Phosphatase Total Protein Albumin Globulin Albumin/Globulin Ratio Nasal Screen MRSA (PCR) Negative for mrsa Salicylates Urine Opiates Screen Negative Ur Oxycodone Screen Negative Urine Methadone Screen Negative Acetaminophen Ur Barbiturates Screen Negative U Tricyclic Antidepress Negative Ur Phencyclidine Scrn Negative Ur Amphetamines Screen Negative U Methamphetamines Scrn Negative Ur MDMA Scrn (Ecstasy) Negative U Benzodiazepines Scrn Negative Urine Cocaine Screen Negative U Marijuana (THC) Screen Positive H Ethyl Alcohol 06/02/18 06/02/18 04:45 04:45 WBC 8.7 RBC 4.29 Hgb 11.5 L Hct 34.8 L MCV 81.1 MCH 26.9 MCHC 33.2 RDW 15.5 H Plt Count 244 Neut % (Auto) 56.8 Lymph % (Auto) 32.7 [place] % (Auto) 8.2 Eos % (Auto) 1.3 L Baso % (Auto) 1.0 Neut # (Auto) 4900 PT INR Sodium 139 Potassium 3.5 Chloride 104 Carbon Dioxide 22 BUN 8 Creatinine 0.70 Estimated GFR > 60.0 BUN/Creatinine Ratio 11.4 Glucose 101 H Lactate Calcium 8.2 L Total Bilirubin 0.4 AST 19 ALT 26 Alkaline Phosphatase 40 Total Protein 6.4 Albumin 3.8 Globulin 2.6 Albumin/Globulin Ratio 1.5 Nasal Screen MRSA (PCR) Salicylates Urine Opiates Screen Ur Oxycodone Screen Urine Methadone Screen Acetaminophen Ur Barbiturates Screen U Tricyclic Antidepress Ur Phencyclidine Scrn Ur Amphetamines Screen U Methamphetamines Scrn Ur MDMA Scrn (Ecstasy) U Benzodiazepines Scrn Urine Cocaine Screen U Marijuana (THC) Screen Ethyl Alcohol Assessment & Plan Plan: Assessment/Plan Narrative: 1. Acute Suicide attempt with Tylenol ingestion - Tylenol levels >200 - LFTs this morning are normal - Received Acetylcysteine as per protocol and continues to run - Will resume general diet- patient is able to tolerate PO - Zofran PRN for nausea/vomiting 2. Normocytic Anemia - Chronic - Hb 11.5/ Hct 34.8 - Pending Iron panel 3. Depression - Patient was on medications but ran out and did not refill - Once medically stable, will be evaluated by psychiatry for possible involuntary admission to psychiatric unit - Suicide precautions 25 min spent evaluating and providing care to this patient
[2018-06-02] MEDS: LACTATED RINGERS 1,000 ML 100 ML IV ×2 (09:00→18:04)
[2018-06-02] MEDS: ENOXAPARIN 40 MG/0.4 ML SYRINGE SUBCUT (09:36)
[2018-06-02] MEDS: NICOTINE 7 MG PATCH TOP (14:11)
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
[2018-06-02 15:56] LABS: INR 1.3 (0.9-1.3); Prothrombin Time 14.5 SECONDS (10.1-12.7)
[2018-06-02 16:03] LABS: Acetaminophen < 10 ug/mL (10-30); Alanine Aminotransferase 29 IU/L (9-52); Aspartate Aminotransferase 20 IU/L (14-36)
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
[2018-06-03 04:48] VITALS: BP 122/86; PULSE 85; RESP 16; TEMP 36.4; O2SAT 96
[2018-06-03 05:16] LABS: Add Manual Diff / Slide Review NO; Basophils Percent Auto 0.9 % (0-2); Eosinophils Percent Auto 2.7 % (2-4); Hematocrit 32.7 % (36-46); Hemoglobin 10.8 g/dL (12.0-16.0); Lymphocytes Percent Auto 33.5 % (25-40); Mean Corpuscular HGB Conc 33.1 % (30-36); Mean Corpuscular Hemoglobin 27.2 PG (26-34); Mean Corpuscular Volume 82.3 fL (80-100); Monocytes Percent Auto 6.9 % (3-14); Neutrophils Absolute Auto 4000 /uL (3000-5900); Platelet Count 216 X10^3/uL (150-400); Red Blood Cell Count 3.97 X10^6/uL (4.0-5.2); Red Cell Distribution Width 15.9 % (11.6-14.8); White Blood Cell Count 7.1 X10^3/uL (4.5-11.0)
[2018-06-03 05:29] LABS: Alanine Aminotransferase 30 IU/L (9-52); Albumin 3.7 g/dL (3.5-5.0); Albumin Globulin Ratio 1.5 (1.0-2.8); Alkaline Phosphatase 56 U/L (38-126); Aspartate Aminotransferase 16 IU/L (14-36); BUN Creatinine Ratio 8.8 (6-22); Bilirubin Total 0.2 mg/dL (0.2-1.3); Blood Urea Nitrogen 7 mg/dL (7-17); Calcium 8.8 mg/dL (8.4-10.2); Carbon Dioxide 27 mmol/L (22-32); Chloride 106 mmol/L (98-107); Estimated Glomerular Filt Rate > 60.0 mL/min (>60); Globulin 2.5 g/dL (1.7-4.1); Glucose 95 mg/dL (70-100); HEMOLYSIS < 15 (0-50); Sodium 141 mmol/L (137-145); Total Protein 6.2 g/dL (6.3-8.2)
[2018-06-03] MEDS: LACTATED RINGERS 1,000 ML 100 ML IV (05:41)
[2018-06-03 08:10] VITALS: BP 115/60; PULSE 88; RESP 18; TEMP 36.6; O2SAT 98
[2018-06-03] MEDS: ONDANSETRON 4 MG/2 ML INJ IV (08:18)
[2018-06-03] MEDS: ENOXAPARIN 40 MG/0.4 ML SYRINGE SUBCUT (08:21)
[2018-06-03] MEDS: NICOTINE 7 MG PATCH TOP (08:29)
[2018-06-03 11:56] VITALS: BP 130/76; PULSE 86; RESP 20; TEMP 36.6; O2SAT 97
--- NOTE | 2018-06-03 14:50 | PM.DS.1 ---
History of Present Illness Date Patient Seen: 06/03/18 Time Patient Seen: 14:51 Chief complaint: Intentional OD Narrative: 28-year-old female past medical history of anemia, anxiety, depression, DT is DUs presented to emergency department after intentional overdose on Tylenol. Patient stated that she has been feeling depressed lately and has been having suicidal thoughts. Few hours prior to admission patient took ?handful of Tylenol pills?. Later on she was not feeling well, so she came to emergency department. At that time she complained of nausea, abdominal pain, and NBNB vomiting. Denied any fevers or chills at that time. denied any loss of consciousness. Denied diarrhea or constipation. Denied any chest pain or palpitations. Discharge Providers Date of admission: 06/01/18 20:05 Primary care physician: Sofya Bach PA-C Discharge provider: Soco Montague MD Discharge Date: 06/03/18 Summary Discharge Diagnosis: Intentional Tylenol Overdose Anxiety/Depression PTSD Anemia Migraines Hospital Course: Emergency department, patient's vital signs were stable. Lab work revealed WBC 6.9, hemoglobin 10.6, hematocrit 32.6, platelets 2 2 2. Sodium 142, potassium 3.7, chloride 106, bicarb 23, BUN 9, creatinine 0.80, glucose 104. Tylenol level was drawn and found to be 204. The rest of urinary drug screen was negative. Patient was protecting her airways. She was transferred to ICU unit and antidote with acetylcysteine was initiated per protocol. She tolerated the treatment well, and prior to cessation of cirrhosis seen, Tylenol levels were again repeated which were less than 10. Patient was given p.o. diet, which she tolerated well. Once medically stable, patient was evaluated by dialysis social worker and Psychiatry. She volunteered to go to rehab at this time. She will be transferred to [facility] for further therapy of depression/SI. as she is now medically stable from medical standpoint. Status at Discharge Overall status at discharge: patient is back to baseline Time Spent with Patient Less than 30 minutes Exam Vital Signs (past 8 hours): - 06/03/18 08:10 06/03/18 11:56 Temperature 98 F 98 F Pulse Rate 88 86 Respiratory Rate 18 20 Blood Pressure 115/60 130/76 Pulse Oximetry 98 97 Oxygen Delivery Method Room Air Oxygen Flow Rate 0 Narrative Exam Narrative: General: NAD, AAOx3 HEENT: PERRLA BL, EOMI BL Neck: Supple, no LAD or JVD Resp: CTA BL, no wheezing CV:RRR, no murmurs or gallops GI: +BS, soft, nontender, no organomegally MSK: Normal ROM, ambulates around the room Skin: No lesins, bruising, or self-inflicted wounds Neuro: NFD Psych: continues to have depressed mood. Patient is aware of her surroundings and has decision making capacity. She still has suicidal thoughts- states they never leave her Objective Labs Result Diagrams: 06/03/18 04:35 06/03/18 04:35 Labs: Laboratory Results - last 24 hr 06/02/18 06/02/18 06/03/18 15:34 15:34 04:35 WBC 7.1 RBC 3.97 L Hgb 10.8 L Hct 32.7 L MCV 82.3 MCH 27.2 MCHC 33.1 RDW 15.9 H Plt Count 216 Neut % (Auto) 56.0 Lymph % (Auto) 33.5 [place] % (Auto) 6.9 Eos % (Auto) 2.7 Baso % (Auto) 0.9 Neut # (Auto) 4000 PT 14.5 H INR 1.3 Sodium Potassium Chloride Carbon Dioxide BUN Creatinine Estimated GFR BUN/Creatinine Ratio Glucose Calcium Total Bilirubin AST 20 ALT 29 Alkaline Phosphatase Total Protein Albumin Globulin Albumin/Globulin Ratio Acetaminophen < 10 L 06/03/18 04:35 WBC RBC Hgb Hct MCV MCH MCHC RDW Plt Count Neut % (Auto) Lymph % (Auto) [place] % (Auto) Eos % (Auto) Baso % (Auto) Neut # (Auto) PT INR Sodium 141 Potassium 4.0 Chloride 106 Carbon Dioxide 27 BUN 7 Creatinine 0.80 Estimated GFR > 60.0 BUN/Creatinine Ratio 8.8 Glucose 95 Calcium 8.8 Total Bilirubin 0.2 AST 16 ALT 30 Alkaline Phosphatase 56 Total Protein 6.2 L Albumin 3.7 Globulin 2.5 Albumin/Globulin Ratio 1.5 Acetaminophen Discharge Plan Discharge Plan Other facility: [facility] inpatient unit Transportation: Ambulance Discharge Med Rec/Prescriptions Prescriptions: New nicotine 7 mg/24 hr Patch 24 Hour 7 mg Topical DAILY Qty: 14 RF: 0 Follow up/Referrals: Sofya Bach PA-C [Primary Care Provider] - 2 Weeks Discharge Orders: Discharge (Order); Ordered 06/03/18 Ordered By: Soco Montague Provider Discharge Instructions Diet: Regular Liquid consistency: Normal/Thin Food texture: Regular Activity: as tolerated [facility] Reason for rehabilitation: Other Discharge Data Primary Care Provider: Sofya Bach Attending Provider: Dheeraj Borja Admit Date/Time: 06/01/18 20:05
--- NOTE | 2018-06-03 15:02 | CM.SWNOTE ---
Addendum entered by THADDEUS Espinal 06/03/18 16:04: [facility] called back at 1600, [facility] Physician has reviewed and pt does not meet criteria for admission. This MARKETING ANALYST updated nursing staff and patient. Pt explained she would like to DC anyway and [facility] which Rosa Maria hercules/ [facility] had offered to yesterday. Rosa Maria had explained to pt yesterday that once she arrived at the prison, there would be coordination of outpt MH/counseling services. Pt denies current suicidal ideation and feels this is a safe plan. This MARKETING ANALYST requested that MARKETING REPORTING ANALYST assist in coordinating pt's DC to [facility], she kindly called and they can accept pt tonight, anytime before 2300. RN and RN coordinator will need to arrange for [facility] to transport pt there using [employer] fund. JW Original Note: Addendum entered by THADDEUS Espinal 06/03/18 15:07: Updated patient w/progress. Nursing staff kindly assisting. Original Note: MH Placement: Pt is medically cleared today and efforts continue to secure an appropriate treatment course. Placed call to [facility] bed placement line this morning and learned that [facility], [facility], and [facility] in [place] have open beds. Placed call to [facility], they were willing to consider patient so faxed a packet this morning. Admission to [facility] still pending. ADITI
[2018-06-03 15:55] VITALS: BP 137/89; PULSE 87; RESP 20; TEMP 37; O2SAT 97
== END 2018-06-03 18:01 | disposition home or self-care (01) | DRG 812 ==
LOC: ED 20:04 → ICU 20:05
PROVIDERS: Internal Medicine; Admitting Provider Internal Medicine; Emergency Provider Emergency Medicine; Family Provider Physician Assistant; PCP Physician Assistant; Visit Provider Internal Medicine
DX: T39.1X2A Poisoning by 4-Aminophenol derivatives, intentional self-harm, initial encounter (principal); R11.2 Nausea with vomiting, unspecified; R10.9 Unspecified abdominal pain; F32.9 Major depressive disorder, single episode, unspecified; D50.9 Iron deficiency anemia, unspecified; R45.851 Suicidal ideations; F17.210 Nicotine dependence, cigarettes, uncomplicated; F43.10 Post-traumatic stress disorder, unspecified; F41.9 Anxiety disorder, unspecified
CPT/HCPCS: 36415; 80053; 80305; 80320; 80329; 81025; 82962; 83605; 84450; 84460; 85025; 85610; 87797; 96361; 96365; 96375; 96376; 99283; 99284; G0480; J0132; J1650; J2405; J2765